=== PATIENT | female | born 1995 | race Hispanic/Latino ===

== ENCOUNTER 2019-05-08 16:01 | Outpatient (CLI) | payer MEDICAID ==
[2019-05-08] MEDS ORDERED: LACTATED RINGERS 500 ML IV ONE (17:19)
[2019-05-08 18:17] LABS: Bacteria,Urine 3+ /HPF (Negative); Bilirubin,Urine SM (Negative); Blood,Urine NEG (Negative); Color,Urine Yellow (Yellow); Mucus,Urine 3+ /HPF
[2019-05-08 18:19] LABS: Ictotest,Urine Negative (Negative); WBC,Urine > 182.0 /HPF (0.0-6.0)
[2019-05-08 18:33] VITALS: BP 125/74
== END 2019-05-08 18:53 | disposition home or self-care (01) ==
LOC: TRG 16:01
PROVIDERS: ATTEND Obstetrics & Gynecology
DX: O47.03 False labor before 37 completed weeks of gestation, third trimester (principal); Z3A.36 36 weeks gestation of pregnancy
CPT/HCPCS: 59025; 81001

== ENCOUNTER 2019-05-28 16:34 | Outpatient (CLI) | payer MEDICAID ==
[2019-05-28 16:57] VITALS: BP 126/71
--- NOTE | 2019-05-28 19:15 | Ultrasound Report ---
ULTRASOUND BIOPHYSICAL PROFILE AND LIMITED OB PELVIC ULTRASOUND INDICATION / CLINICAL INFORMATION: Decreased movement. COMPARISON: None available. FINDINGS: BREATHING MOVEMENT = 2 GROSS BODY MOVEMENT = 2 TONE = 2 QUALITATIVE AMNIOTIC FLUID VOLUME = 2 TOTAL BIOPHYSICAL SCORE = 8/8 AMNIOTIC FLUID INDEX (cm) = 7.9. The amniotic fluid demonstrates diffuse low-level internal echoes. PRESENTATION: Cephalic. HEART RATE (beats per minute): 138 IMPRESSION: biophysical profile = 06/14 Signer Name: Matias Uribe MD Signed: 05/28/2019 7:11 PM Workstation Name: [email or web address]
== END 2019-05-28 20:01 | disposition home or self-care (01) ==
LOC: TRG 16:34
PROVIDERS: ATTEND Obstetrics & Gynecology
DX: O47.1 False labor at or after 37 completed weeks of gestation (principal); Z3A.40 40 weeks gestation of pregnancy
CPT/HCPCS: 76815; 76819

== ENCOUNTER 2019-05-29 08:06 | Outpatient (CLI) | payer MEDICAID ==
--- NOTE | 2019-05-29 10:23 | Ultrasound Report ---
ULTRASOUND BIOPHYSICAL PROFILE INDICATION / CLINICAL INFORMATION: WELLBEING. Postdates. COMPARISON: None available. FINDINGS: BREATHING MOVEMENT = 2 GROSS BODY MOVEMENT = 2 TONE = 2 QUALITATIVE AMNIOTIC FLUID VOLUME = 2 TOTAL BIOPHYSICAL SCORE = 8 HEART RATE (beats per minute): 142 IMPRESSION: 1. biophysical profile = 06/14 Signer Name: Reynold Camarillo MD Signed: 05/29/2019 10:19 AM Workstation Name: [email or web address]
--- NOTE | 2019-05-29 10:24 | Ultrasound Report ---
US OB limited INDICATION: FAITH. Postdates. COMPARISON: None available. FINDINGS: position is cephalic. Amniotic fluid index measures 7.2 cm, within normal range. heart ra te measures 1 38 cm. Signer Name: Reynold Camarillo MD Signed: 05/29/2019 10:20 AM Workstation Name: [id number]
[2019-05-29 10:57] VITALS: BP 128/80
== END 2019-05-29 11:10 | disposition home or self-care (01) ==
LOC: TRG 08:06
PROVIDERS: ATTEND Obstetrics & Gynecology
DX: O47.1 False labor at or after 37 completed weeks of gestation (principal); Z3A.40 40 weeks gestation of pregnancy
CPT/HCPCS: 59025; 76815; 76819

== ENCOUNTER 2019-05-31 12:51 | Inpatient (IN) | payer MEDICAID ==
[2019-05-31] MEDS ORDERED: LACTATED RINGERS 1,000 ML ONE (13:09)
[2019-05-31 13:54] LABS: Hematocrit 36.6 % (30.3-42.9); Hemoglobin 12.4 gm/dl (10.1-14.3); Mean Corpuscular HGB Conc 34 % (30-34); Mean Corpuscular Volume 87 fl (79-97); Platelet Count 259 K/mm3 (140-440); Red Blood Count 4.22 M/mm3 (3.65-5.03); Red Cell Distribution Width 14.5 % (13.2-15.2)
[2019-05-31] MEDS ORDERED: XYLOCAINE 2% INFILTRATI ONE (13:59)
[2019-05-31] MEDS ORDERED: BRETHINE SUB-Q PRN (13:59)
[2019-05-31] MEDS ORDERED: SUBLIMAZE IV PRN (13:59)
[2019-05-31] MEDS ORDERED: BRETHINE IVP PRN (13:59)
[2019-05-31] MEDS ORDERED: MINERAL OIL PO PRN (13:59)
[2019-05-31] MEDS ORDERED: PITOCin/NS 30 UNIT/500ML 30 UNITS/500 ML BAG IV SCH (14:00)
[2019-05-31] MEDS ORDERED: LACTATED RINGERS 1,000 ML IV SCH (14:00)
[2019-05-31] MEDS ORDERED: ZOFRAN ONE ×2 (14:20→17:10)
[2019-05-31] MEDS ORDERED: NARCAN 2 MG/2 ML IV PRN (15:00)
[2019-05-31] MEDS ORDERED: PITOCin/NS 20 UNIT/1000ML DRIP 20 UNITS/1,000 ML BAG IV SCH (15:00)
--- NOTE | 2019-05-31 15:01 | Anesthesia Consultation ---
Anesthesia Consult and Med Hx Date of service: 05/31/19 - Airway Anesthetic Teeth Evaluation: Good ROM Head & Neck: Adequate Mental/Hyoid Distance: Adequate Mallampati Class: Class II Intubation Access Assessment: Probably Good - Pulmonary Exam CTA: Yes - Cardiac Exam Cardiac Exam: RRR - Pre-Operative Health Status ASA Pre-Surgery Classification: ASA2 Proposed Anesthetic Plan: Epidural - Pulmonary Hx Asthma: No - Cardiovascular System Hx Hypertension: No - Central Nervous System Hx Seizures: No Hx Psychiatric Problems: No - Endocrine Hx Renal Disease: No Hx Hypothyroidism: No Hx Hyperthyroidism: No - Hematic Hx Anemia: No Hx Sickle Cell Disease: No - Other Systems Hx Alcohol Use: No
[2019-05-31] MEDS ORDERED: fentaNYL-BUPIV 2 MCG/ML-0.125% 200 MCG/100 ML BAG EPIDURAL SCH (15:30)
[2019-05-31] MEDS ORDERED: MARCAINE 0.25% INFILTRATI ONE (17:08)
--- NOTE | 2019-05-31 20:39 | History and Physical Report ---
History of Present Illness Date of examination: 05/31/19 Date of admission: 05/31/19 14:22 Chief complaint: Intense labor pains History of present illness: 23 yo AA Fe , EFE 05/23/2019 (LMP) 41 weeks 1 day, presents in active labor. Pt initiated care with [facility] at 16 weeks. Varicella NonImmune, Vitamin D deficiency (D3 supplementation), GERD (Nexium). Past History Past Surgical History: no surgical history, other (GERD) [employer] History: denies: abnormal PAP smear, chlamydia, gonorrhea, hepatitis B, hepatitis C, herpes, HIV, syphilis, trichomonas Family/Genetic History: none Social history: no significant social history, single, full code. denies: smoking, alcohol abuse, prescription drug abuse, IV drug use - Obstetrical History Expected Date of Delivery: 05/23/19 Actual Gestation: 41 Week(s) 1 Day(s) : 1 Para: 0 Hx # Term Pregnancies: 0 Number of Pregnancies: 0 Spontaneous Abortions: 0 Induced : 0 Number of Living Children: 0 Medications and Allergies Allergies Allergy/AdvReac Type Severity Reaction Status Date / Time No Known Allergies Allergy Verified 05/08/19 17:18 Home Medications Medication Instructions Recorded Confirmed Last Taken Type No Known Home Medications [No 05/29/19 05/29/19 Unknown History Reported Home Medications] Active Meds: Active Medications Ephedrine Sulfate (Ephedrine Sulfate) 10 mg IV Q2M PRN PRN Reason: Hypotension Fentanyl (Sublimaze) 100 mcg IV Q2H PRN PRN Reason: Labor Pain Oxytocin/Sodium Chloride (Pitocin/Ns 20 Unit/1000ml Drip) 20 units in 1,000 mls @ 125 mls/hr IV DIRECT JUANITA Oxytocin/Sodium Chloride (Pitocin/Ns 30 Unit/500ml) 30 units in 500 mls @ 2 mls/hr IV TITR JUANITA; Protocol Lactated Ringer's (Lactated Ringers) 1,000 mls @ 125 mls/hr IV DIRECT JUANITA Fentanyl/Bupivacaine/Sodium Chlor (Fentanyl-Bupiv 2 Mcg/Ml-0.125%) 200 mcg in 100 mls @ 12 mls/hr EPIDURAL TITR JUANITA; Protocol Last Admin: 05/31/19 15:08 Dose: 12 mls/hr Documented by: Mineral Oil (Mineral Oil) 30 ml PO QHS PRN PRN Reason: Constipation Naloxone HCl (Narcan 2 Mg/2 Ml) 0.2 mg IV Q5M PRN PRN Reason: Respiratory sedation Terbutaline Sulfate (Brethine) 0.25 mg SUB-Q ONCE PRN PRN Reason: Hyperstimulation/Hypertonicity Terbutaline Sulfate (Brethine) 0.25 mg IVP ONCE PRN PRN Reason: Hyperstimulation/Hypertonicity Review of Systems Eyes: normal appearance Cardiovascular: no chest pain, no shortness of breath Respiratory: no shortness of breath Breasts: normal Gastrointestinal: no nausea, no vomiting, no diarrhea, no constipation Genitourinary: normal appearance, contractions, no leakage of fluid, no genital sores Integumentary: no rash, no sores, no lesions - Vital Signs Vital signs: Vital Signs Temp Pulse Resp BP Pulse Ox 98.1 F 79 18 131/74 99 05/31/19 13:03 05/31/19 13:03 05/31/19 13:03 05/31/19 13:03 05/31/19 13:03 Temp Pulse Resp BP Pulse Ox 97.9 F 92 H 20 146/84 95 05/31/19 19:30 05/31/19 20:24 05/31/19 19:30 05/31/19 20:24 05/31/19 15:01 - Physical Exam Breasts: Positive: normal Cardiovascular: Regular rate, Normal S1, Normal S2, No murmurs Lungs: Positive: Clear to auscultation, Normal air movement Abdomen: Positive: normal appearance, soft. Negative: distention Genitourinary (Female): Positive: normal external genitalia, normal perenium Vulva: both: normal Vagina: Positive: normal moisture Uterus: Positive: enlarged (Gravid) Anus/Rectum: Positive: normal perianal skin Extremities: Positive: normal Deep Tendon Reflex Grade: Normal +2 - Obstetrical FHR: category 1 Uterine Contraction Monitor Mode: External Cervical Dilatation: 4 (Per Admitting RN) Cervical Effacement Percentage: 80 station: -2 Uterine Contraction Pattern: Regular Uterine Tone Measurement Phase: Resting Uterine Contraction Intensity: Moderate Results Result Diagrams: 05/31/19 13:15 Abnormal lab results 05/31/19 Range/Units 13:15 WBC 17.8 H (4.5-11.0) K/mm3 All other labs normal. Assessment and Plan A: Term IUP at 41w1d Active labor Category 1 tracing GBS negative P: Admit to L&D Routine labor orders May have epidural/IV pain med PRN Anticipate
--- NOTE | 2019-05-31 22:53 | Procedure Note ---
OB Delivery Note - Delivery Date of Delivery: 05/31/19 Surgeon: MARK JARVIS (VIVI) Estimated blood loss: 100cc - Vaginal Delivery presentation: vertex Delivery position: OA Intrapartum events: meconium (light), mult.variable deceleratio Delivery induction: none Delivery augmentation: rupture of membranes Delivery monitor: external FHT, external uterine Route of delivery: (22:26) Delivery placenta: spontaneous Delivery cord: 3 umbilical vessels Episiotomy: none Delivery laceration: 1st degree (small superficial; left unrepaired) Anesthesia: epidural Delivery comments: viable male infant ALINA position with compound (Left arm) presentation with NICU and RT present for meconium stained fluid. Cord clamped then cut, less than vigorous placed in pre-warmed RW. Cord blood collected per protocol. Spontaneous maguire delivery of intact placenta. 3VC. Small first degree perineal laceration left unrepaired. Approximates well. EBL 100cc. - A at 1 minute: 7 at 5 minutes: 7 Infant Gender: Male (2971 grams, 6lbs 9oz, 19.5")
[2019-05-31] MEDS ORDERED: LANSINOH TP PRN (22:54)
[2019-05-31] MEDS ORDERED: PHENERGAN PO PRN (22:54)
[2019-05-31] MEDS ORDERED: TYLENOL PO PRN (22:54)
[2019-05-31] MEDS ORDERED: MILK OF MAGNESIA PO PRN (22:54)
[2019-05-31] MEDS ORDERED: TUCKS PAD TP PRN (22:54)
[2019-05-31] MEDS ORDERED: ZOFRAN IV PRN (22:54)
[2019-05-31] MEDS ORDERED: BENADRYL PO PRN (22:54)
[2019-05-31] MEDS ORDERED: DULCOLAX PR PRN (22:54)
[2019-05-31] MEDS ORDERED: SODIUM CHLORIDE FLUSH SYRINGE 10 ML IV NR (23:00)
[2019-06-01] MEDS: IBUPROFEN PO SCH ×5 (01:15→23:53)
[2019-06-01] MEDS: NORCO 5/325 PO PRN ×3 (01:17→06:38)
[2019-06-01] MEDS ORDERED: PITOCin/NS 20 UNIT/1000ML DRIP 20,000 MILLIUNITS/1,000 ML BAG IV ONE (05:38)
--- NOTE | 2019-06-01 06:34 | Event Note ---
Date: 06/01/19 (06) Called to pt room per RN to assess bleeding. Pt found alert, oriented x3. IVF with Pitocin infusing (just hung). Fundus deviated to pt right and at the level of her ribcage. Fundal massage with multiple large clots (approximately 400cc) expressed and FF@U. Pt tolerated well. VSS. Will continue IV Pitocin. Encouraged frequent urination.
--- NOTE | 2019-06-01 06:36 | Progress Note ---
Assessment and Plan A: PPD#1 s/p Stable P: Routine PP orders Anticipate discharge home in 24-48 hrs Subjective - Subjective Date of service: 06/01/19 Principal diagnosis: PPD#1 s/p Interval history: 23 yo AA Fe , EFE 05/23/2019 (LMP) 41 weeks 1 day, presents in active labor. Pt initiated care with [facility] at 16 weeks. Varicella NonImmune, Vitamin D deficiency (D3 supplementation), GERD (Nexium). Patient reports: appetite normal, voiding normally, pain well controlled, ambulating normally [place]: doing well Objective - Vital Signs Latest vital signs: Vital Signs Temp Pulse Resp BP BP Pulse Ox 06/01/19 05:53 98.3 F 101 H 20 107/72 98 06/01/19 01:17 20 06/01/19 01:15 20 06/01/19 01:05 98.9 F 97 H 20 124/71 98 06/01/19 00:04 105 H 131/73 05/31/19 23:49 102 H 138/79 05/31/19 23:34 104 H 140/78 05/31/19 23:19 107 H 139/73 05/31/19 23:04 104 H 144/91 05/31/19 22:56 104 H 143/85 05/31/19 21:55 90 125/73 05/31/19 21:24 92 H 151/104 05/31/19 20:54 99 H 131/90 05/31/19 20:24 92 H 146/84 05/31/19 19:53 92 H 141/91 05/31/19 19:30 97.9 F 20 05/31/19 19:24 89 143/84 05/31/19 18:54 83 151/95 05/31/19 18:23 96 H 140/94 05/31/19 17:54 87 135/92 05/31/19 17:23 102 H 153/97 05/31/19 17:17 106 H 146/75 05/31/19 17:11 93 H 141/96 05/31/19 17:06 83 136/80 05/31/19 17:01 113 H 149/107 05/31/19 16:56 105 H 136/108 05/31/19 16:51 102 H 146/102 05/31/19 16:47 102 H 145/87 05/31/19 16:41 93 H 152/90 05/31/19 16:37 90 161/94 05/31/19 16:31 97 H 147/94 05/31/19 16:28 91 H 153/91 05/31/19 16:22 90 138/88 05/31/19 16:16 109 H 140/87 05/31/19 16:11 83 143/80 05/31/19 16:07 78 140/89 05/31/19 16:02 84 129/73 05/31/19 15:56 89 133/74 05/31/19 15:52 95 H 130/86 05/31/19 15:47 100 H 141/88 05/31/19 15:41 89 115/71 05/31/19 15:36 80 115/72 05/31/19 15:32 85 110/67 05/31/19 15:26 87 123/88 05/31/19 15:21 104 H 122/81 05/31/19 15:16 89 130/80 05/31/19 15:10 86 121/79 05/31/19 15:08 92 H 119/69 05/31/19 15:07 88 114/63 05/31/19 15:05 85 108/63 05/31/19 15:02 90 125/72 05/31/19 15:01 84 95 05/31/19 15:00 82 121/66 05/31/19 14:59 82 132/73 94 05/31/19 14:57 98 H 137/79 05/31/19 14:56 95 H 93 05/31/19 14:54 95 H 139/86 05/31/19 14:53 86 128/80 94 05/31/19 14:51 83 145/88 96 05/31/19 14:46 92 H 98 05/31/19 13:03 98.1 F 79 18 131/74 131/74 99 Intake and Output 05/31/19 05/31/19 06/01/19 15:59 23:59 07:59 Intake Total 3637 1375 240 Output Total 20 2 Balance 3617 1373 240 Intake: IV 3637 1125 Lactated Ringers 1,000 ml 2625 125 @ 125 mls/hr IV DIRECT JUANITA Rx#:[id number] Left Hand 1000 1000 fentaNYL-BUPIV 2 MCG/ML-0 12 .125% 200 mcg In 100 ml @ 12 mls/hr EPIDURAL TITR JUANITA Rx#:[id number] Oral 250 Intake, Free Water 240 Output: Urine 20 Indwelling Catheter 20 Emesis 2 Other: Total, Intake Amount 250 Total, Output Amount 20 2 # Voids Indwelling Catheter 1 2 Void 1 Weight 74.843 kg Estimated Blood Loss 100 - Exam Breasts: Present: normal Cardiovascular: Present: Regular rate, Normal S1, Normal S2, No murmurs Lungs: Present: Clear to auscultation, Normal air movement Abdomen: Present: normal appearance, normal bowel sounds. Absent: distention Vulva: both: normal Uterus: Present: other (See event note) Extremities: Present: normal Deep Tendon Reflex Grade: Normal +2 - Labs Labs: Abnormal lab results 05/31/19 Range/Units 13:15 WBC 17.8 H (4.5-11.0) K/mm3
[2019-06-01 12:09] LABS: Hematocrit 26.8 % (30.3-42.9); Hemoglobin 8.9 gm/dl (10.1-14.3)
[2019-06-02] MEDS: IBUPROFEN PO SCH (06:18)
--- NOTE | 2019-06-02 11:26 | Progress Note ---
Assessment and Plan A: day 2 S/P spontaneous vaginal delivery. Anemia secondary to and blood loss. P: Repeat CBC. If stable, anticipate discharge later today or in AM. Discussed with patient discharge instructions and warning signs. Advised patient to continue to take her vitamins and iron supplements at home. Advised patient to avoid intercourse, lifting, and heavy housework. Advised patient to follow up at [facility] in 6 weeks for exam. Patient voiced understanding of all instructions. Subjective - Subjective Date of service: 06/02/19 Principal diagnosis: PPD#2 s/p Interval history: day 2 S/P spontaneous vaginal delivery. On iron supplementation for anemia. Doing well. Patient reports small amount of lochia. She is voiding without difficulty. Ambulating well. Tolerating a regular diet without nausea or vomiting. Patient denies headache, chest pain, cough, shortness of breath, dizziness, abdominal pain, leg pain, or heavy bleeding. Desires discharge if able to go later today. Patient reports: appetite normal, voiding normally, pain well controlled, flatus, ambulating normally, no dizzy ambulation, no nauseated : doing well Objective - Vital Signs Latest vital signs: Vital Signs Temp Pulse Resp BP Pulse Ox 06/02/19 07:41 98.4 F 101 H 20 107/55 96 06/02/19 06:18 18 06/02/19 01:00 98 H 06/02/19 00:53 18 06/01/19 23:53 18 06/01/19 23:32 98.2 F 115 H 20 126/74 97 06/01/19 16:54 97.9 F 110 H 16 103/60 97 Intake and Output 06/01/19 06/02/19 06/02/19 23:59 07:59 15:59 Intake Total 240 120 120 Output Total 250 Balance -10 120 120 Intake: Oral 240 120 120 Output: Urine 250 Void 250 Other: Total, Intake Amount 240 120 120 Total, Output Amount 250 # Voids Void 1 1 1 - Exam Abdomen: Present: normal appearance, soft. Absent: distention, tenderness, guarding, rigidity Uterus: Present: normal, firm, fundal height below umbilicus. Absent: bogginess, tenderness Extremities: Present: normal. Absent: tenderness, edema - Labs Labs: Abnormal lab results 06/01/19 Range/Units 11:41 Hgb 8.9 L D (10.1-14.3) gm/dl Hct 26.8 L D (30.3-42.9) %
[2019-06-02 14:57] LABS: Basophils % (Auto) 0.2 % (0.0-1.8); Eosinophils # (Auto) 0.2 K/mm3 (0.0-0.4); Eosinophils % (Auto) 1.1 % (0.0-4.3); Hematocrit 25.1 % (30.3-42.9); Hemoglobin 8.3 gm/dl (10.1-14.3); Lymphocytes # (Auto) 1.4 K/mm3 (1.2-5.4); Lymphocytes % (Auto) 8.5 % (13.4-35.0); Mean Corpuscular HGB Conc 33 % (30-34); Mean Corpuscular Volume 88 fl (79-97); Monocytes # (Auto) 1.1 K/mm3 (0.0-0.8); Monocytes % (Auto) 6.5 % (0.0-7.3); Platelet Count 258 K/mm3 (140-440); Red Blood Count 2.85 M/mm3 (3.65-5.03); Red Cell Distribution Width 14.5 % (13.2-15.2)
[2019-06-02 16:50] VITALS: BP 122/77
--- NOTE | 2019-06-02 16:52 | Discharge Summary ---
Providers - Providers Date of Admission: 05/31/19 14:22 Date of discharge: 06/02/19 Attending physician: KIERRA SANFORD MD None Primary care physician: KIERRA SANFORD MD Hospitalization Reason for admission: active labor Delivery: Episiotomy: none Laceration: 1st degree Other procedures: none complications: none Discharge diagnosis: IUP at term delivered baby: male Pertinent studies: Labs Hospital course: Normal hospital course. Condition at discharge: Good Disposition: DC-01 TO HOME OR SELFCARE - Discharge Diagnoses (1) Term delivered Status: Acute (2) Anemia due to blood loss Status: Acute Plan - Provider Discharge Summary Activity: routine, no sex for 6 weeks, no heavy lifting 4 weeks, no strenuous exercise Diet: routine Instructions: routine Additional instructions: A prescription for Keflex has been called in to [facility] pharmacy on [facility]. Please pick this up today and start taking it as prescribed. Discharge to home has been approved by Dr. Netta Minor. Call your doctor immediately for: * Fever > 100.5 * Heavy vaginal bleeding ( >1 pad per hour) * Severe persistent headache * Shortness of breath * Reddened, hot, painful area to leg or breast - Follow up plan Follow up: KIERRA SANFORD MD [Primary Care Provider] - 7 Days
== END 2019-06-02 17:10 | disposition home or self-care (01) | DRG 775 ==
LOC: TRG 12:51 → LD 14:22 → OB 06-01 00:51
PROVIDERS: ADMIT Obstetrics & Gynecology; ATTEND Obstetrics & Gynecology
PROC: 10E0XZZ Delivery of Products of Conception, External Approach (ICD-10-PCS; principal; 2019-05-31)
PROC: 3E0R3BZ Introduction of Anesthetic Agent into Spinal Canal, Percutaneous Approach (ICD-10-PCS; 2019-05-31)
PROC: 00HU33Z Insertion of Infusion Device into Spinal Canal, Percutaneous Approach (ICD-10-PCS; 2019-05-31)
DX: O77.0 Labor and delivery complicated by meconium in amniotic fluid (principal); Z37.0 Single live birth; K21.9 Gastro-esophageal reflux disease without esophagitis; O76 Abnormality in fetal heart rate and rhythm complicating labor and delivery; O99.62 Diseases of the digestive system complicating childbirth; O90.81 Anemia of the puerperium; D62 Acute posthemorrhagic anemia; O70.0 First degree perineal laceration during delivery; Z3A.41 41 weeks gestation of pregnancy
CPT/HCPCS: 36415; 59025; 85014; 85018; 85025; 85027; 86592; 86850; 86900; 86901; 96360; 96366; G0378; J2405; J2590; J7120